=== PATIENT | male | born 1950 | race Caucasian/White ===

== ENCOUNTER → 2018-07-23 | Outpatient (CLI) | payer MEDICARE, OTHER ==
[~2018-07-23] MED LIST: OMEP-10 PO
--- NOTE | 2018-07-23 13:14 | Diagnostic Imaging Report ---
EXAMINATION: Cervical spine at 11:05 a.m. INDICATION: Neck pain. COMPARISON: There are no prior studies available for comparison. TECHNIQUE: Three views were obtained. FINDINGS: The lateral view shows degenerative disc and bony disease at C5-C6 and C6-C7. Specifically, there is narrowing of the disc spaces and osteophyte formation along the ventral aspects of each of the vertebral bodies. The other intervertebral spaces are well maintained. There is no fracture or acute bony abnormality evident. There is no sign of retropharyngeal edema. The lung apices are clear. IMPRESSION: 1. There is no evidence for an acute bony abnormality. 2. There is degenerative disc and bony disease at C5-C6 and C6-C7. 3. If there is clinical concern regarding spinal stenosis or nerve root encroachment, then MRI would be recommended for further study. Dictated by: Dictated on workstation # [id number]
== END ==
LOC: RAD 10:28
PROVIDERS: ATTEND Nurse Practitioner Family
DX: M50.322 Other cervical disc degeneration at C5-C6 level (principal); M89.9 Disorder of bone, unspecified
CPT/HCPCS: 72040

== ENCOUNTER → 2018-07-26 | Outpatient (CLI) | payer MEDICARE, OTHER ==
--- NOTE | 2018-07-26 10:48 | Diagnostic Imaging Report ---
PROCEDURE: MR imaging cervical spine without contrast. TECHNIQUE: Multiplanar, multisequence MR imaging of the cervical spine was performed without contrast. INDICATION: Neck pain radiating to left upper extremity. COMPARISON: CT cervical spine without contrast 07/23/2018. FINDINGS: Normal alignment. Vertebral body heights preserved. Moderate degenerative endplate changes are greatest at C5-C7. Bone marrow signal is otherwise unremarkable. No abnormal signal in the cervical spinal cord. The visualized paravertebral soft tissues are unremarkable. C2-C3: No spinal canal or neural foraminal narrowing. C3-C4: No spinal canal narrowing. Uncovertebral facet arthropathy resulted in moderate right and advanced left neural foraminal narrowing. C4-C5: Posterior disc osteophyte complex results in mild to moderate spinal canal narrowing. There is moderate bilateral neural foraminal narrowing. C5-C6: Posterior disc osteophyte complex results in moderate to advanced spinal canal narrowing. There is advanced bilateral neural foraminal narrowing. C6-C7: Posterior disc osteophyte complex results in moderate to advanced spinal canal narrowing. There is advanced left and moderate right neural foraminal narrowing. C7-T1: Posterior disc osteophyte complex results in mild spinal canal narrowing. Uncovertebral hypertrophy also results in advanced left and moderate right neural foraminal narrowing. IMPRESSION: 1. Multilevel spinal canal narrowing is greatest at C5-C6 and C6-C7 where it is moderate to advanced. No abnormal signal in the cervical spinal cord. 2. Scattered moderate and advanced neural foraminal narrowing detailed above level by level. 3. No acute osseous findings. Dictated by: Dictated on workstation # [id number]
== END ==
LOC: RAD 09:10
PROVIDERS: ATTEND Nurse Practitioner Family
DX: M48.02 Spinal stenosis, cervical region (principal); M48.03 Spinal stenosis, cervicothoracic region; M99.71 Connective tissue and disc stenosis of intervertebral foramina of cervical region; M46.92 Unspecified inflammatory spondylopathy, cervical region; M50.221 Other cervical disc displacement at C4-C5 level; M50.222 Other cervical disc displacement at C5-C6 level; M50.223 Other cervical disc displacement at C6-C7 level; M25.78 Osteophyte, vertebrae; M89.38 Hypertrophy of bone, other site
CPT/HCPCS: 72141

== ENCOUNTER 2021-08-31 18:22 | Emergency (ER) | payer MEDICARE, OTHER ==
[~2021-08-31] VITALS: Ht 185.4 cm; Wt 98.8 kg
[2021-08-31] MEDS ORDERED: LACTATED RINGERS 1,000 ML IV ONE (18:30)
--- NOTE | 2021-08-31 18:47 | ED General ---
General Stated Complaint: DIZZINESS, NAUSEA Source of Information: Patient History of Present Illness Date Seen by Provider: Aug 31, 2021 Time Seen by Provider: 18:23 Initial Comments PT ARRIVES VIA EMS FROM [facility] PT STATES SOON HE GOT TO THE [facility], HE BEGAN TO FEEL HOT AND CLAMMY, DIZZY AND NAUSEATED AND FELT LIKE HE WAS GOING TO PASS OUT ( HAD NOT EATEN YET) BP WAS 99/50 FOR FIRE DEPT, THEN WAS 120'S SYSTOLIC BY THE TIME EMS ARRIVED AT THE SCENE BLOOD GLUCOSE 78 FOR EMS EMS GAVE IV ZOFRAN AND STARTED IV FLUIDS PT STATES HE FELT GOOD ALL DAY STATES HE HAS BEEN EATING AND DRINKING FINE ( LATER REPORTS THAT HE HAS NOT BEEN DRINKING MUCH AND HAS NOT EATEN MUCH TODAY ) NO CHEST PAIN NO SHORTNESS OF BREATH NO PALPITATIONS NO HEADACHE NO VISION CHANGES NO PARESTHESIAS OR MOTOR DEFICITS BEGAN GETTING SICK AND TESTED + FOR COVID-19 ON 08/13/21 PT BEGAN HAVING EXACT SAME SYMPTOMS ON 08/14/21, HAD TESTED NEGATIVE ON 08/13/21, AND DID NOT RETEST, AND WAS NOT SEEN BY ANYONE, AND SYMPTOMS HAVE RESOLVED. THEY HAVE BOTH BEEN STAYING AT HOME UNTIL THIS EVENING, WHEN THEY DECIDED TO GO OUT TO EAT. PT HAD MODERNA COVID-19 VACCINES X 2--LAST ONE 10/2020 PT HAS HAD FLU VACCINE PT DENIES HISTORY OF ANY RESPIRATORY, CARDIAC OR NEUROLOGICAL PROBLEMS PT HAS HTN, HYPERLIPIDEMIA AND DIABETES PCP: DR. PRABHAKAR Allergies and Home Medications Allergies Coded Allergies: No Known Drug Intolerances (Verified Allergy, Unknown, 04/27/08) Patient Home Medication List Home Medication List Reviewed: Yes Omeprazole (Prilosec 20 Mg) 20 Mg Carlitos.dr 20 MG PO DAILY PRN, (Reported) Entered as Reported by: CAROL CUMMINS on 08/25/114 Review of Systems Review of Systems Constitutional: see HPI, dizziness, malaise, weakness EENTM: no symptoms reported Respiratory: no symptoms reported Cardiovascular: see HPI; No chest pain, No edema, No palpitations, No vascular heart diseas Gastrointestinal: see HPI; No abdominal pain, No diarrhea; nausea; No vomiting Genitourinary: no symptoms reported Musculoskeletal: no symptoms reported Skin: no symptoms reported Psychiatric/Neurological: See HPI; Denies Headache, Denies Numbness, Denies Paresthesia, Denies Seizure, Denies Tingling, Denies Weakness Hematologic/Lymphatic: No Symptoms Reported Immunological/Allergic: no symptoms reported Past Mvjynlj-Yafgfi-Gkyjro Hx Patient Social History Tobacco Use?: No Substance use?: No Alcohol Use?: Yes Alcohol Frequency: Rarely Past Medical History Surgeries: Yes (C-SPINE FUSION C-5,6,7) Orthopedic Respiratory: No Cardiac: Yes High Cholesterol, Hypertension Neurological: No Reproductive Disorders: No Genitourinary: No Gastrointestinal: No Musculoskeletal: Yes (CERVICAL SPINE FUSION C-5,6,7--DR. MARCELO) Degenerate Disk Disease Endocrine: Yes Diabetes, Non-Insulin dep HEENT: No Cancer: No Psychosocial: No Integumentary: No Blood Disorders: No Physical Exam Vital Signs Vital Signs - First Documented 08/31/21 18:23 Temp 36.0 Pulse 82 Resp 20 B/P (MAP) 135/80 Pulse Ox 96 O2 Delivery Room Air Capillary Refill : Height, Weight, BMI Height: '" Weight: lbs. oz. 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 Norm as Tested; No Abnormal Cerebellar Tests Skin: Normal Color, Warm/Dry Focused Exam Lactate Level 08/31/21 18:51: Lactic Acid Level 1.32 Lactic Acid Level Laboratory Tests Test 08/31/21 18:51 Lactic Acid Level 1.32 MMOL/L (0.50-2.00) Progress/Results/Core Measures Suspected Sepsis SIRS Temperature: Pulse: Respiratory Rate: Laboratory Tests 08/31/21 18:40: White Blood Count 14.0H Blood Pressure / Mean: 08/31/21 18:51: Lactic Acid Level 1.32 Laboratory Tests 08/31/21 18:40: Creatinine 1.39H, INR Comment 1.0, Platelet Count 345, Total Bilirubin 0.4 Results/Orders Lab Results Laboratory Tests Test 08/31/21 18:40 08/31/21 18:41 08/31/21 18:51 08/31/21 19:25 Range/Units White Blood Count 14.0 H 4.3-11.0 10^3/uL Red Blood Count 5.18 4.30-5.52 10^6/uL Hemoglobin 15.0 13.3-17.7 g/dL Hematocrit 45 40-54 % Mean Corpuscular Volume 87 80-99 fL Mean Corpuscular Hemoglobin 29 25-34 pg Mean Corpuscular Hemoglobin Concent 33 32-36 g/dL Red Cell Distribution Width 12.6 10.0-14.5 % Platelet Count 345 130-400 10^3/uL Mean Platelet Volume 9.3 9.0-12.2 fL Immature Granulocyte % (Auto) 0 % Neutrophils (%) (Auto) 77 H 42-75 % Lymphocytes (%) (Auto) 16 12-44 % Monocytes (%) (Auto) 4 0-12 % Eosinophils (%) (Auto) 1 0-10 % Basophils (%) (Auto) 0 0-10 % Neutrophils # (Auto) 10.8 H 1.8-7.8 10^3/uL Lymphocytes # (Auto) 2.3 1.0-4.0 10^3/uL Monocytes # (Auto) 0.6 0.0-1.0 10^3/uL Eosinophils # (Auto) 0.2 0.0-0.3 10^3/uL Basophils # (Auto) 0.1 0.0-0.1 10^3/uL Immature Granulocyte # (Auto) 0.1 0.0-0.1 10^3/uL Neutrophils % (Manual) 80 % Lymphocytes % (Manual) 12 % Monocytes % (Manual) 5 % Eosinophils % (Manual) 3 % Blood Morphology Comment NORMAL Erythrocyte Sedimentation Rate 10 0-30 MM/HR Prothrombin Time 13.3 12.2-14.7 SEC INR Comment 1.0 0.8-1.4 Activated Partial Thromboplast Time 30 24-35 SEC D-Dimer <= 0.27 0.00-0.49 UG/ML Sodium Level 140 135-145 MMOL/L Potassium Level 3.7 3.6-5.0 MMOL/L Chloride Level 100 98-107 MMOL/L Carbon Dioxide Level 25 21-32 MMOL/L Anion Gap 15 H 5-14 MMOL/L Blood Urea Nitrogen 21 H 7-18 MG/DL Creatinine 1.39 H 0.60-1.30 MG/DL Estimat Glomerular Filtration Rate 55 BUN/Creatinine Ratio 15 Glucose Level 136 H 70-105 MG/DL Calcium Level 9.3 8.5-10.1 MG/DL Corrected Calcium 9.1 8.5-10.1 MG/DL Magnesium Level 2.1 1.6-2.4 MG/DL Total Bilirubin 0.4 0.1-1.0 MG/DL Aspartate Amino Transf (AST/SGOT) 18 5-34 U/L Alanine Aminotransferase (ALT/SGPT) 27 0-55 U/L Alkaline Phosphatase 62 40-136 U/L Total Creatine Kinase 122 30-200 U/L Creatine Kinase MB 1.7 <6.6 NG/ML Myoglobin 72.9 10.0-92.0 NG/ML Troponin I < 0.028 <0.028 NG/ML C-Reactive Protein High Sensitivity 0.24 0.00-0.50 MG/DL B-Type Natriuretic Peptide < 10.0 <100.0 PG/ML Total Protein 7.6 6.4-8.2 GM/DL Albumin 4.3 3.2-4.5 GM/DL Amylase Level 65 25-125 U/L Lipase 38 8-78 U/L Influenza Type A Antigen NEGATIVE NEGATIVE Influenza Type B Antigen NEGATIVE NEGATIVE Lactic Acid Level 1.32 0.50-2.00 MMOL/L Urine Color YELLOW Urine Clarity CLEAR Urine pH 6.0 5-9 Urine Specific [place] 1.025 H 1.016-1.022 Urine Protein TRACE H NEGATIVE Urine Glucose (UA) NEGATIVE NEGATIVE Urine Ketones NEGATIVE NEGATIVE Urine Nitrite NEGATIVE NEGATIVE Urine Bilirubin NEGATIVE NEGATIVE Urine Urobilinogen 0.2 < = 1.0 MG/DL Urine Leukocyte Esterase NEGATIVE NEGATIVE Urine RBC (Auto) TRACE-I H NEGATIVE Urine RBC NONE /HPF Urine WBC 0-2 /HPF Urine Squamous Epithelial Cells NONE /HPF Urine Crystals NONE /LPF Urine Bacteria TRACE /HPF Urine Casts PRESENT /LPF Urine Hyaline Casts 0-2 H /LPF Urine Mucus NEGATIVE /LPF Urine Culture Indicated NO My Orders Orders - ESTELLE SAN DO Ed Iv/Invasive Line Start (08/31/21 18:24) Ekg Tracing (08/31/21 18:24) Monitor-Rhythm Ecg Trace Only (08/31/21 18:24) Amylase (08/31/21 18:24) Bnp [place] (08/31/21 18:24) Cbc With Automated Diff (08/31/21 18:24) Comprehensive Metabolic Panel (08/31/21 18:24) Creatine Kinase (08/31/21 18:24) Creatine Kinase Mb (08/31/21 18:24) Hs C Reactive Protein (08/31/21 18:24) Fibrin Degradation Products (08/31/21 18:24) Lactic Acid Analyzer (08/31/21 18:24) Lipase (08/31/21 18:24) Magnesium (08/31/21 18:24) Protime With Inr (08/31/21 18:) Partial Thromboplastin Time (08/31/21 18:24) Ua Culture If Indicated (08/31/21 18:24) Erythrocyte Sedimentation Rate (08/31/21 18:24) Myoglobin Serum (08/31/21 18:24) Troponin I Sophia (08/31/21 18:24) Ed Iv/Invasive Line Start (08/31/21 18:24) Lactated Ringers (Lr 1000 Ml Iv Solution (08/31/21 18:30) Chest 1 View, Ap/Pa Only (08/31/21 18:40) Manual Differential (08/31/21 18:40) Influenza A & B Antigens (08/31/21 18:41) Ct Angio Chest W (08/31/21 19:16) Ct Head Wo-R/O Stroke (08/31/21 19:16) Iohexol Injection (Omnipaque 350 Mg/Ml 1 (08/31/21 19:30) Received Contrast (Hold Metformin- Contr (08/31/21 19:30) Ns (Ivpb) (Sodium Chloride 0.9% Ivpb Bag (08/31/21 19:30) Rx-Ondansetron Po (Rx-Zofran Po) (08/31/21 20:02) Medications Given in ED Current Medications Medications Dose Ordered Sig/Johny Route Start Time Stop Time Status Last Admin Dose Admin Iohexol 100 ml ONCE ONCE IV 08/31/21 19:30 08/31/21 20:39 DC 08/31/21 19:34 81 ML Lactated Ringer's 1,000 ml @ 0 mls/hr Q0M ONCE IV 08/31/21 18:30 08/31/21 18:31 DC 08/31/21 19:50 1,000 MLS/HR Sodium Chloride 100 ml ONCE ONCE IV 08/31/21 19:30 08/31/21 20:39 DC 08/31/21 19:34 80 ML Vital Signs/I&O 08/31/21 08/31/21 18:23 20:38 Temp 36.0 36.0 Pulse 82 92 Resp 20 16 B/P (MAP) 135/80 128/80 Pulse Ox 96 97 O2 Delivery Room Air Room Air Capillary Refill : Progress Note : Progress Note GIVEN IV FLUIDS AND STATES HE FEELS MUCH BETTER AND FEELS WELL ENOUGH TO GO HOME PT WALKS OUT OF ER WITHOUT ANY DIFFICULTY AND SYMPTOM-FREE ECG Initial ECG Impression Date: Aug 31, 2021 Initial ECG Impression Time: 18:33 Initial ECG Rate: 78 Initial ECG Rhythm: Normal Sinus Diagnostic Imaging Comments CXR--PER RADIOLOGIST REPORT AT 1915 FINDINGS: There is basilar atelectasis. The heart is prominent without pulmonary edema. There is no pneumothorax or effusion. Osseous structures are stable. IMPRESSION: 1. Bibasilar atelectasis. 2. Slight cardiac enlargement without pulmonary edema or acute infiltrate. CT SCANS--PER RADIOLOGIST REPORTS AT 1955 CT HEAD-- FINDINGS: Ventricles are normal in size, shape and position. There is no midline shift or mass effect. There is no hemorrhage or evidence of acute ischemia. No extra-axial fluid collection or mass is seen. Mucosal thickening is seen in the paranasal sinuses. The mastoids are clear. There is no skull fracture. IMPRESSION: No acute intracranial abnormality. CT CHEST ANGIOGRAM-- FINDINGS: The heart is enlarged with coronary artery disease. No pericardial effusion is seen. The aorta and pulmonary arteries are unremarkable. There is no pulmonary embolism. There is central vascular congestion. There is no focal infiltrate, effusion or pneumothorax. Osseous structures and visualized upper abdominal solid organs are intact. IMPRESSION: 1. No pulmonary embolism identified. 2. Cardiac enlargement with coronary artery disease and central vascular congestion. 3. Not mentioned above, small hiatal hernia. Reviewed: Reviewed by Me Departure Impression Primary Impression: Dehydration Additional Impression: Near syncope Disposition: 01 HOME, SELF-CARE Condition: Stable Departure-Patient Inst. Decision time for Depature: 20:00 Referrals: LEEANNE PRABHAKAR MD (PCP/Family) Primary Care Physician Patient Instructions: Dehydration, Adult (DC) Add. Discharge Instructions: INCREASE YOUR FLUID INTAKE--DRINK ENOUGH SO YOUR ARE URINATING EVERY 2-3 HOURS WHILE AWAKE CONTINUE YOUR REGULAR MEDICATIONS PRESCRIBED RETURN TO ER IF SYMPTOMS RETURN/WORSEN ESTELLE SAN DO Aug 31, 2021 18:47
[2021-08-31 18:49] LABS: BASOPHILS # (AUTO) 0.1 10^3/uL (0.0-0.1); BASOPHILS % (AUTO) 0 % (0-10); EOSINOPHILS # (AUTO) 0.2 10^3/uL (0.0-0.3); EOSINOPHILS % (AUTO) 1 % (0-10); HEMATOCRIT 45 % (40-54); LYMPHOCYTES # (AUTO) 2.3 10^3/uL (1.0-4.0); LYMPHOCYTES % (AUTO) 16 % (12-44); MEAN CORPUSCULAR HEMOGLOBIN 29 pg (25-34); MEAN CORPUSCULAR HGB CONC 33 g/dL (32-36); MEAN CORPUSCULAR VOLUME 87 fL (80-99); MEAN PLATELET VOLUME 9.3 fL (9.0-12.2); MONOCYTES # (AUTO) 0.6 10^3/uL (0.0-1.0); MONOCYTES % (AUTO) 4 % (0-12); NEUTROPHILS # (AUTO) 10.8 10^3/uL (1.8-7.8); NEUTROPHILS % (AUTO) 77 % (42-75); PLATELET COUNT 345 10^3/uL (130-400)
[2021-08-31 18:57] LABS: ALBUMIN 4.3 GM/DL (3.2-4.5); CHLORIDE 100 MMOL/L (98-107); POTASSIUM 3.7 MMOL/L (3.6-5.0); SODIUM 140 MMOL/L (135-145)
[2021-08-31 18:58] LABS: AMYLASE 65 U/L (25-125); CALCIUM 9.3 MG/DL (8.5-10.1)
[2021-08-31 18:59] LABS: GLUCOSE 136 MG/DL (70-105); TOTAL PROTEIN 7.6 GM/DL (6.4-8.2)
--- NOTE | 2021-08-31 18:59 | Diagnostic Imaging Report ---
INDICATION: Dizziness. COMPARISON: None. EXAMINATION: Single view of the chest. FINDINGS: There is basilar atelectasis. The heart is prominent without pulmonary edema. There is no pneumothorax or effusion. Osseous structures are stable. IMPRESSION: 1. Bibasilar atelectasis. 2. Slight cardiac enlargement without pulmonary edema or acute infiltrate. Dictated by: Dictated on workstation # [id number]
[2021-08-31 19:00] LABS: CARBON DIOXIDE 25 MMOL/L (21-32)
[2021-08-31 19:01] LABS: BILIRUBIN,TOTAL 0.4 MG/DL (0.1-1.0)
[2021-08-31 19:03] LABS: ALKALINE PHOSPHATASE 62 U/L (40-136); CREATININE SERUM 1.39 MG/DL (0.60-1.30); GFR ESTIMATED 55
[2021-08-31 19:04] LABS: BUN/CREATININE RATIO 15; FIBRIN DEGRADATION PRODUCTS <= 0.27 UG/ML (0.00-0.49); PARTIAL THROMBOPLASTIN TIME 30 SEC (24-35); PROTHROMBIN TIME PATIENT 13.3 SEC (12.2-14.7)
[2021-08-31 19:06] LABS: ALANINE AMINOTRANSFERASE 27 U/L (0-55); MAGNESIUM 2.1 MG/DL (1.6-2.4)
[2021-08-31 19:08] LABS: CREATINE KINASE 122 U/L (30-200); EOSINOPHILS % (MANUAL) 3 %; ERYTHROCYTE SEDIMENTATION RATE 10 MM/HR (0-30); LIPASE 38 U/L (8-78); LYMPHOCYTES % (MANUAL) 12 %; MONOCYTES % (MANUAL) 5 %; NEUTROPHILS % (MANUAL) 80 %; RBC MORPH NORMAL
[2021-08-31 19:14] LABS: CREATINE KINASE MB 1.7 NG/ML (<6.6)
[2021-08-31] MEDS ORDERED: NS 100 ML (IVPB) BAG IV ONE (19:30)
[2021-08-31] MEDS ORDERED: HOLD METFORMIN - RECEIVED CONTRAST 20 ML VIAL IV SCH (19:30)
[2021-08-31] MEDS ORDERED: IOHEXOL 350 MG/ML 100 ML (OMNIPAQUE 350) VIAL IV ONE (19:30)
[2021-08-31 19:32] LABS: BILIRUBIN,URINE NEGATIVE (NEGATIVE); CLARITY,URINE CLEAR; COLOR,URINE YELLOW; GLUCOSE, URINE (UA) NEGATIVE (NEGATIVE); KETONES,URINE NEGATIVE (NEGATIVE); LEUKOCYTE ESTERASE ,URINE NEGATIVE (NEGATIVE); NITRITE,URINE NEGATIVE (NEGATIVE); PROTEIN,URINE TRACE (NEGATIVE)
--- NOTE | 2021-08-31 19:46 | Diagnostic Imaging Report ---
PROCEDURE: CT head w/o r/o stroke. TECHNIQUE: Multiple contiguous axial images were obtained through the brain without the use of intravenous contrast. Auto Exposure Controls were utilized during the CT exam to meet ALARA standards for radiation dose reduction. INDICATION: Dizziness. COMPARISON: 08/25/2011. FINDINGS: Ventricles are normal in size, shape and position. There is no midline shift or mass effect. There is no hemorrhage or evidence of acute ischemia. No extra-axial fluid collection or mass is seen. Mucosal thickening is seen in the paranasal sinuses. The mastoids are clear. There is no skull fracture. IMPRESSION: No acute intracranial abnormality. Dictated by: Dictated on workstation # [id number]
--- NOTE | 2021-08-31 19:51 | Diagnostic Imaging Report ---
PROCEDURE: CT angiography of the chest with contrast. TECHNIQUE: Multiple contiguous axial images were obtained through the chest after uneventful bolus administration of intravenous contrast. 3D reconstructed CTA MIP acquisitions were also performed. Auto Exposure Controls were utilized during the CT exam to meet ALARA standards for radiation dose reduction. INDICATION: Pulmonary embolism, Covid. COMPARISON: None. FINDINGS: The heart is enlarged with coronary artery disease. No pericardial effusion is seen. The aorta and pulmonary arteries are unremarkable. There is no pulmonary embolism. There is central vascular congestion. There is no focal infiltrate, effusion or pneumothorax. Osseous structures and visualized upper abdominal solid organs are intact. IMPRESSION: 1. No pulmonary embolism identified. 2. Cardiac enlargement with coronary artery disease and central vascular congestion. 3. Not mentioned above, small hiatal hernia. Dictated by: Dictated on workstation # [id number]
[2021-08-31 19:58] LABS: BACTERIA,URINE TRACE /HPF; HYALINE CASTS, URINE 0-2 /LPF; WBC,URINE 0-2 /HPF
[2021-08-31] MEDS ORDERED: RX-ONDANSETRON 4 MG ODT (ZOFRAN) PPK #4 PO STA (20:02)
[2021-08-31 20:38] VITALS: BP 128/80
== END 2021-08-31 20:39 | disposition home or self-care (01) ==
LOC: EDUNIT# 18:22 → ER 18:24
DX: E86.0 Dehydration (principal); R55 Syncope and collapse; I10 Essential (primary) hypertension; E11.9 Type 2 diabetes mellitus without complications
CPT/HCPCS: 36415; 70450; 71045; 71275; 80053; 81000; 82150; 82550; 82553; 83605; 83690; 83735; 83874; 83880; 84484; 85007; 85027; 85379; 85610; 85652; 85730; 86141; 87804; 93005; 93041

== ENCOUNTER 2022-07-02 11:45 | Outpatient (CLI) | payer MEDICARE, OTHER ==
[~2022-07-02] VITALS: Ht 185.4 cm; Wt 102.1 kg
[2022-07-02] MEDS ORDERED: ASPI-1238 PO (12:05)
[2022-07-02] MEDS ORDERED: HYDR12.56 PO (12:05)
[2022-07-02] MEDS ORDERED: MULT-593 PO (12:05)
== END 2022-07-02 12:08 | disposition home or self-care (01) ==
LOC: PREOP 11:45
PROVIDERS: ATTEND Surgery
DX: Z01.818 Encounter for other preprocedural examination (principal)

== ENCOUNTER 2022-07-10 10:18 | Day surgery (SDC) | payer MEDICARE, OTHER ==
[~2022-07-10] VITALS: Ht 185 cm; Wt 102.1 kg
[~2022-07-10 10:18] MED LIST changes: +ASPI-1238 PO; +HYDR12.56 PO; +MULT-593 PO
[2022-07-10] MEDS ORDERED: LACTATED RINGERS 1,000 ML IV STA (10:19)
[2022-07-10] MEDS ORDERED: HURRICAINE EXT TUBE (BENZOCAINE) XX PRN (10:30)
[2022-07-10 10:32] VITALS: BP 154/99
--- NOTE | 2022-07-10 10:32 | Progress Note-Pre Operative ---
Pre-Operative Progress Note Date of Available H&P: Jun 13, 2022 Date H&P Reviewed: Jul 10, 2022 Time H&P Reviewed: 10:31 History & Physical: H&P Reviewed, Patient Examed, No changes noted Pre-Operative Diagnosis: GERD, positive cologuard JOSÉ LUIS BUCKNER DO Jul 10, 2022 10:32
[2022-07-10] MEDS ORDERED: PROPOFOL INJECTION 50 ML IV ONE (10:45)
--- NOTE | 2022-07-10 11:31 | Discharge Inst-Simple/Standard ---
Discharge Inst-Standard Patient Instructions/Follow Up Plan of Care/Instructions/FU: F/u with Dr. Osborn in 2 weeks. Activity as Tolerated: Yes Discharge Diet: No Restrictions, Regular Diet JOSÉ LUIS OSBORN DO Jul 10, 2022 11:31
[2022-07-10 11:39] VITALS: BP 99/57
[2022-07-10 11:44] VITALS: BP 98/60
[2022-07-10 11:45] VITALS: BP 98/60
[2022-07-10 12:00] VITALS: BP 138/76
[2022-07-10 12:10] VITALS: BP 138/76
--- NOTE | 2022-07-10 14:26 | Anesthesia-General Post-Op ---
MAC Patient Condition Mental Status/LOC: Same as Preop Cardiovascular: Satisfactory Nausea/Vomiting: Absent Respiratory: Satisfactory Pain: Controlled Complications: Absent Post Op Complications Complications None Follow Up Care/Instructions Patient Instructions None needed. Anesthesiology Discharge Order Discharge Order Patient is doing well, no complaints, stable vital signs, no apparent adverse anesthesia problems. No complications reported per nursing. CLEMENTE GUALLPA CRNA Jul 10, 2022 14:26
--- NOTE | 2022-07-10 21:47 | OPERATIVE REPORT ---
DATE OF SERVICE: 07/10/2022 PREOPERATIVE DIAGNOSIS: Gastroesophageal reflux disease and positive Cologuard. POSTOPERATIVE DIAGNOSIS: Diverticulosis, ascending colon polyp, normal EGD. PROCEDURE: EGD with biopsies, colonoscopy with snare polypectomy x1. SURGEON: Joés Luis Osborn DO. ANESTHESIA: Per DELIVERY PERSON. ESTIMATED BLOOD LOSS: None. COMPLICATIONS: None. INDICATIONS: The patient is a 71-year-old male with GERD symptoms and also with positive Cologuard test. He understands risks and benefits of procedure and wishes to proceed. Consent was signed in chart. DESCRIPTION OF PROCEDURE: The patient was taken to the endoscopy suite, placed in left lateral recumbent position. Timeout was performed. Scope was inserted in the mouth, down the esophagus, stomach and the duodenum without difficulty. No polyps, masses or ulcerations within the duodenum. Scope was retracted back and the stomach was further insufflated. No polyps, masses, ulcerations in the stomach. Biopsy of the antrum was obtained. Scope was retroflexed, noting no other pathology. Scope was returned to its normal position and slowly withdrawn to the distal esophagus. Normal appearance. No polyps, masses or ulcerations. Biopsy of GE junction was obtained. Scope was then slowly retracted back until completely removed. Digital rectal exam was performed. No palpable polyps, masses, ulcerations. Scope was inserted in the rectum and advanced all the way to cecum with minimal difficulty. Prep was adequate. Scope was slowly retracted back. No polyps, masses or ulcers in the cecum. In the ascending colon, a larger polyp was present, which snare polypectomy was performed. The scope was then continuously slowly retracted back. No polyps, masses, ulcerations in the remainder of the ascending, transverse, descending and sigmoid colon. There is also diverticulosis present within the sigmoid colon. Once in the rectum, scope was retroflexed, noting no other pathology. Scope was returned to its normal position, slowly withdrawn until completely removed. The patient tolerated the procedure well without complications and taken to recovery room in stable condition. RECOMMENDATIONS: The patient will need repeat colonoscopy in 3 years due to the size of the polyp, we will follow up on pathology. Any issues before that should be reevaluated at that time. Job ID: [id number] DocumentID: [id number] Dictated Date: 07/10/2022 11:33:09 Silk Conditioner Date: 07/10/2022 21:46:00 Dictated By: JOSÉ LUIS OSBORN DO
== END 2022-07-10 12:10 | disposition home or self-care (01) ==
LOC: ENDO 10:18
PROVIDERS: ATTEND Surgery
DX: D12.2 Benign neoplasm of ascending colon (principal); K57.30 Diverticulosis of large intestine without perforation or abscess without bleeding; K21.00 Gastro-esophageal reflux disease with esophagitis, without bleeding; K31.89 Other diseases of stomach and duodenum; Z79.899 Other long term (current) drug therapy
CPT/HCPCS: 88305